=== PATIENT | male | born 1990 | race Asian ===

== ENCOUNTER 2017-04-25 03:33 | Emergency (ER) | payer MEDICARE, MEDICAID ==
[~2017-04-25] VITALS: Ht 152.4 cm; Wt 80.0 kg
[~2017-04-25 03:33] MED LIST: ERGO500017 PO; FEBU40TA PO; FERR325T20 PO; HYDR-3240 PO; HYDR28OI3 TP; LEVO50TA PO; LINA5TAB PO; LOSA25TA2 PO; OMEP-110 PO; PRED20TA PO
[2017-04-25] MEDS ORDERED: MORPHINE SULFATE 4 MG/ML, 1ML IVPush PRN (05:00)
[2017-04-25] MEDS ORDERED: ONDANSETRON 2MG/ML, 2ML IVPush ONE (05:00)
[2017-04-25] MEDS ORDERED: SODIUM CHLORIDE 0.9% 1,000ML IVBOLUS ONE (05:00)
[2017-04-25 05:25] LABS: ASPARTATE AMINO TRANSFERASE 18 U/L (15-37); BLOOD UREA NITROGEN 28 mg/dL (7-18)
[2017-04-25] MEDS ORDERED: POTASSIUM CHLORIDE 40 MEQ in SODIUM CHLORIDE 0.9% 500 ML IV ONE (06:30)
[2017-04-25 07:00] VITALS: BP 99/59
== END 2017-04-25 09:14 | disposition home or self-care (01) ==
LOC: ED 05:31
DX: K52.9 Noninfective gastroenteritis and colitis, unspecified (principal); E87.6 Hypokalemia; N18.4 Chronic kidney disease, stage 4 (severe); Q90.9 Down syndrome, unspecified; Z99.2 Dependence on renal dialysis; F79 Unspecified intellectual disabilities
CPT/HCPCS: 36415; 74020; 74176; 80053; 81001; 85025; 87086; 96361; 96365; 96366; 96375; 99285; J2405; J3480; J7030; J7040

== ENCOUNTER → 2018-01-05 | Outpatient (CLI) | payer MEDICARE, MEDICAID ==
[~2018-01-05] MED LIST changes: +FERR325T18 PO; -FERR325T20 PO
== END | disposition home or self-care (01) ==
LOC: PETCFH 08:15
PROVIDERS: ATTEND Surgery
DX: E04.1 Nontoxic single thyroid nodule (principal); N25.81 Secondary hyperparathyroidism of renal origin; E83.52 Hypercalcemia
CPT/HCPCS: 76536; 78070; A9500

== ENCOUNTER 2018-06-02 19:08 | Emergency (ER) | payer MEDICARE, MEDICAID ==
[~2018-06-02] VITALS: Ht 149.9 cm; Wt 78.3 kg
[2018-06-02 19:11] VITALS: BP 130/81
[2018-06-02] MEDS ORDERED: LIDOCAINE 2%, 20ML SQ ONE (20:00)
[2018-06-02] MEDS ORDERED: LIDOCAINE-MPF 2% ,5ML ONE (20:13)
== END 2018-06-02 21:48 | disposition home or self-care (01) ==
LOC: ED 21:10
DX: L02.416 Cutaneous abscess of left lower limb (principal); L03.116 Cellulitis of left lower limb; N28.9 Disorder of kidney and ureter, unspecified; E87.6 Hypokalemia
CPT/HCPCS: 10060; 82962; 99283

== ENCOUNTER 2020-10-28 20:53 | Emergency (ER) | payer MEDICARE, MEDICAID ==
[~2020-10-28] VITALS: Ht 152.4 cm; Wt 90.0 kg
--- NOTE | 2020-10-28 21:19 | NUR ---
PT BIB SISTER VIA POV. COVID POSITIVE MEMBERS IN THE HOUSEHOLD, PT WAS AT DIALYSIS TODAY AND WAS TOLD HE HAS A LOW O2 SAT, TAKEN TO [facility] AND SWABBED EARLIER TONIGHT, AND SENT TO US FOR THE LOW O2. PT O2 SATS GOOD IN TRIAGE 96% ON RA. PT USES HOME O2 @ HS. EMESIS x2 TODAY
--- NOTE | 2020-10-28 21:20 | NUR ---
PT RESTING IN [facility], MONITORING IN PLACE, SISTER AT BS, JOSSY RIVERO AT BS. NAD NOTED AT THIS TIME, WILL CONTINUE TO MONITOR.
[2020-10-28] MEDS ORDERED: DEXAMETHASONE 4 MG TABLET PO ONE (22:00)
[2020-10-28] MEDS ORDERED: ACETAMINOPHEN 500 MG TABLET PO ONE (22:00)
[2020-10-28] MEDS ORDERED: ACETAMINOPHEN 500 MG TABLET ONE (22:11)
[2020-10-28] MEDS ORDERED: DEXAMETHASONE 4 MG TABLET ONE (22:11)
--- NOTE | 2020-10-28 22:56 | NUR ---
PT RESTING IN [facility], NAD NOTED AT THIS TIME, WILL CONTINUE TO MONITOR. LAB WORK AND URINE SPECIMEN SENT TO LAB.
[2020-10-28 23:05] LABS: ALANINE AMINOTRANSFERASE 43 U/L (12-78); ALBUMIN 3.4 g/dL (3.4-5.0); ANION GAP 5 mmol/L (5-15); CALCIUM 9.2 mg/dL (8.5-10.1); CHLORIDE 96 mmol/L (98-107); CREATININE 7.36 mg/dL (0.7-1.3)
[2020-10-28 23:07] LABS: ALKALINE PHOSPHATASE 114 U/L (45-117); BILIRUBIN,TOTAL 0.5 mg/dL (0.2-1.0); TOTAL PROTEIN 9.2 g/dL (6.4-8.2)
[2020-10-28 23:15] LABS: BASOPHILS % (AUTO) 1 % (0-1); EOSINOPHILS % (AUTO) 0 % (1-7); LYMPHOCYTES % (AUTO) 11 % (22-44); MEAN CORPUSCULAR HEMOGLOBIN 32.8 pg (27.5-34.5); MEAN CORPUSCULAR HGB CONC 32.8 g/dL (33.2-36.2); MONOCYTES % (AUTO) 9 % (2-9); NEUTROPHILS % (AUTO) 79 % (42-75); PLATELET COUNT 212 x10^3/uL (130-400); RED BLOOD COUNT 4.04 x10^6/uL (4.38-5.82); RED CELL DISTRIBUTION WIDTH 14.9 % (9.4-14.8)
[2020-10-28 23:20] LABS: MD NO
[2020-10-29 01:13] LABS: MICROSCOPIC INDICATED
--- NOTE | 2020-10-29 01:40 | NUR ---
Patient given discharge instructions and they have confirmed that they understand the instructions. Patient ambulatory with steady gait. NAD, DENIES ADDITIONAL NEEDS AT THIS TIME. ALL QUESTIONS ANSWERED APPROPRIATELY. NO PERSONAL BELONGINGS LEFT IN ROOM AT THE TIME OF DC.
[2020-10-29 01:42] VITALS: BP 139/56
== END 2020-10-29 01:47 | disposition home or self-care (01) ==
LOC: ED 10-29 00:31
DX: J18.9 Pneumonia, unspecified organism (principal); N18.4 Chronic kidney disease, stage 4 (severe); R00.0 Tachycardia, unspecified; Z99.2 Dependence on renal dialysis
CPT/HCPCS: 36415; 71045; 80053; 81001; 83605; 84145; 85025; 87040; 87081; 87880; 93005; 99285